=== PATIENT | female | born 1960 | race Caucasian/White ===

== ENCOUNTER 2020-09-02 12:44 | Outpatient (CLI) | payer SELFPAY ==
--- NOTE | 2020-09-02 | CT_ITS ---
WS: [id number] CT LUMBAR SPINE, noncontrast. HISTORY: Back pain. TECHNIQUE: Contiguous 2.5 mm axial imaging are performed. Sagittal and coronal reformats are submitte d and reviewed. All CT scans at [facility] use at least one of these dose optimization te chniques: automated exposure control; mA and/or kV adjustment per patient size (includes targeted exa ms where dose is matched to clinical indication); or iterative reconstruction. IV contrast: None DLP: 1970.98 mGycm COMPARISON: 02/21/2016 Status post artificial disc replacement at L4-5 is similar to the prior examination. Mild increase in the lumbar lordosis in the lower lumbar region. Vertebral bodies are normal height. L1-2: Normal. L2-3: Normal. L3-4: Minimal osteophytic ridging and annular bulging. No stenosis. L4-5: Artifact from the disc replacement. Portion of the thecal sac is obscured by artifact. No inter jose roberto change. L5-S1: Minimal annular disc bulging. No stenosis. Minimal atherosclerosis of aorta. Mild diffuse fecal retention and constipation. CT/CT lumbar spine wo con* [id number] IMPRESSION: 1. Status post artificial replacement of the L4-5 disc. 2. No significant stenosis. Similar changes as compared to 02/21/2016.
--- NOTE | 2020-09-02 | XR_ITS ---
WS: [id number] THORACIC SPINE TECHNIQUE: AP and lateral views are performed. HISTORY: Dorsalgia COMPARISON: None available. Normal thoracic alignment. Very minimal disc space narrowing and small hypertrophic endplate osteophy suzie at all levels. Pedicles and interpedicular distances are normal. XR/XR thoracic spine 2V [id number] IMPRESSION: Mild thoracic spondylosis.
== END 2020-09-02 12:45 | disposition home or self-care (01) ==
LOC: RADWPI 12:57
PROVIDERS: PCP Family Medicine; Visit Provider Family Medicine
DX: M54.5 Low back pain (principal); M47.814 Spondylosis without myelopathy or radiculopathy, thoracic region
CPT/HCPCS: 72070; 72131

== ENCOUNTER 2020-12-15 14:36 | Outpatient (CLI) | payer MEDICARE, SELFPAY ==
--- NOTE | 2020-12-15 14:46 | MM_ITS ---
WS: [id number] BILATERAL SCREENING DIGITAL MAMMOGRAM WITH CAD HISTORY: SCREENING COMPARISON: 10/23/2017 Bilateral CC and MLO views submitted. Computer aided detection analyzed. Breast composition: The breasts are heterogeneously dense, which may obscure small masses. No suspici ous masses, microcalcifications or architectural distortion. Benign calcification 9:00 RIGHT breast. MM/[place] [id number] IMPRESSION: BI-RADS: 2-Benign FOLLOW UP: 1 Year Follow-up
== END 2020-12-15 14:37 | disposition home or self-care (01) ==
LOC: RADSHAW 14:45
PROVIDERS: PCP Family Medicine; Visit Provider Family Medicine
DX: Z12.31 Encounter for screening mammogram for malignant neoplasm of breast (principal)
CPT/HCPCS: 77067

== ENCOUNTER → 2021-04-06 10:59 | Outpatient (BNVA) | payer MEDICARE, SELFPAY | PROVIDERS: PCP Family Medicine; Visit Provider Surgery | DX: Z01.812 Encounter for preprocedural laboratory examination (principal); Z20.822 Contact with and (suspected) exposure to COVID-19 | CPT/HCPCS: 87635 ==

== ENCOUNTER 2021-04-12 08:36 | Day surgery (SDC) | payer MEDICARE, SELFPAY ==
[2021-04-05 15:47] VITALS: BMI 24.1
--- NOTE | 2021-04-12 08:53 | ANES.PREANE2 ---
Pre-Anesthetic Assessment Pre-Anesthetic Assessment: Height/Weight: Height 1.65 m Weight 65.771 kg Preop Diagnosis: Screening Proposed Procedure: Operation Date: 04/12/21 10:00 Proposed Procedures p Colonoscopy 15842 z12.11(Not Applicable) - Cal Chamberlain MD Familial anesthetic complications: None Was Beta Rajiv taken within 24 hours: N/A Was Clonidine taken within 24 hours: N/A Last intake: > 8hrs Social: Social History: No alcohol and No tobacco Comment: Vapes Exam: Pre-Anes Outpt Exam: alert, oriented x 3, clear to auscultation bilaterally and regular rate & rhythm Airway: MP: 2 Dentition: Partials Metabolic: Metabolic: Hyperlipidemia Musc/skel: Musc/skel: Lower Back Pain Neuropsych: Comments: propanolol for migraines Anesthetic Plan: ASA status: 2 Anesthesia: MAC Risk of > 500 ml blood loss (7ml/kg in children): No Data Anesthesia Cardiac Studies: No Data to Display
[2021-04-12 09:16] VITALS: BP 159/93; PULSE 62; RESP 18; TEMP 35.9; O2SAT 96
[2021-04-12] MEDS: sodium chloride 0.9% 1,000 ML 30 ML IV (09:23)
--- NOTE | 2021-04-12 09:41 | W.PM.OPSFHP ---
Same Day Surgery H&P Indication for Procedure/HPI DATE OF PROCEDURE: April 12, 2021 CHIEF COMPLAINT/INDICATIONFOR SURGICAL PROCEDURE: Screening colonoscopy PREOP DIAGNOSIS: Screening colonoscopy PLANNED PROCEDRUE: Operation Date: 04/12/21 10:00 Proposed Procedures p Colonoscopy 89604 z12.11(Not Applicable) - Cal Chamberlain MD This is a pleasant 60 years old female patient referred to my practice for screening colonoscopy. She denies history of bleeding per rectum. Or history of colon cancer. ROS All systems have been reviewed negative except as per the above or per problem list Medications/Allergies* Home Medications Medication Instructions Recorded Confirmed Type acetaminophen-codeine 600 tab PO BID 04/05/21 04/12/21 History carisoprodol 350 mg PO TID 04/05/21 04/12/21 History estradiol 0.5 mg PO DAILY 04/05/21 04/12/21 History gabapentin 600 mg PO TID 04/05/21 04/12/21 History morphine 15 mg PO TID 04/05/21 04/12/21 History propranolol 120 mg PO DAILY 04/05/21 04/12/21 History rosuvastatin 5 mg PO DAILY 04/05/21 04/12/21 History sennosides-docusate sodium [Colace 2 tab-cap PO TID 04/12/21 04/12/21 History 2-In-1] Allergies/Adverse Reactions Allergy/AdvReac Type Severity Reaction Status Date / Time Iodinated Contrast Media Allergy Unknown Verified 04/12/21 10:23 meperidine [From Demerol] Allergy Unknown Verified 04/12/21 10:23 Current Medications: Generic Name Dose Route Start Last Admin Trade Name Freq PRN Reason Stop Dose Admin Sodium Chloride 1,000 mls @ 30 mls/hr 04/12/21 09:00 04/12/21 09:23 Sodium Chloride 0.9% IV 04/13/21 08:59 30 mls/hr .Q24H IVONE Administration Pertinent Exam Findings alert, oriented x 3, clear to auscultation bilaterally, regular rate & rhythm and procedure specific exam findings (Abdominal examination nontender nondistended soft, midline scar) Recommendations Surgery/Procedure today (Colonoscopy with possible biopsy) Other Plans: Plan of care; After thorough history and physical examination and reviewing the chart, plan to perform screening colonoscopy. I discussed with the patient in details the risks,benefits,alternatives and indications.The risk of aspiration, bleeding, soft tissue injury, perforation of the colon and other potential concomitant complications were explained to the patient in details,also the potential need for Laproscoy/Laparotomy to repair any related complications including but not limited to colectomy and or Closotomy.The patient understood this well and did agree to proceed. Rationale was carefully and clearly discussed with the patient.Appropriate informed consent have been reviewed and signed All questions have been answered and all concerns have been addressed to patient's satisfaction. Verbal and written Instructions were given to the patient for colonoscopy prep Coding Level of Care Code [employer] for [employer]
[2021-04-12 10:43] VITALS: BP 131/91; PULSE 62; RESP 16; TEMP 36.1; O2SAT 93
[2021-04-12 10:54] VITALS: BP 133/75; PULSE 57; RESP 16; O2SAT 100
--- NOTE | 2021-04-12 13:57 | ANE.PACU2 ---
Inpatient post-anesthesia follow up: Airway intact: Yes Vital signs: Temperature 97.0 F Pulse Rate 57 Respiratory Rate 16 Blood Pressure 133/75 Pulse Oximetry 100 Oxygen Delivery Me thod Room Air Oxygen Flow Rate Fraction of Inspir ed Oxygen Hydration adequate: Yes Nausea and vomiting: No Pain level: 1 Mental status: Baseline
== END 2021-04-12 11:12 | disposition home or self-care (01) ==
PROVIDERS: PCP Family Medicine; Visit Provider Surgery
PROC: 0DJD8ZZ Inspection of Lower Intestinal Tract, Via Natural or Artificial Opening Endoscopic (ICD-10-PCS; CPT 45378; principal; 2021-04-12 10:00)
DX: Z12.11 Encounter for screening for malignant neoplasm of colon (principal); K63.89 Other specified diseases of intestine; E78.5 Hyperlipidemia, unspecified
CPT/HCPCS: 45378; 96360; 96361; J2704; J7030

== ENCOUNTER 2022-04-16 12:13 | Outpatient (CLI) | payer MEDICARE, SELFPAY ==
--- NOTE | 2022-04-16 12:21 | MM_ITS ---
WS: [id number] SCREENING DIGITAL BREAST TOMOSYNTHESIS MAMMOGRAM WITH CAD HISTORY: Screening exam COMPARISON: 12/15/2020 Bilateral CC and MLO with tomosynthesis and synthetic mammography submitted. Computer aided detection analyzed. Breast composition: The breasts are heterogeneously dense, which may obscure small masses. Seen only on the LEFT MLO projection is an area of distortion in the central breast. No corresponding abnormali ty noted on the CC projection. The RIGHT breast is negative for distortion or suspicious calcificatio n. MM/[place] [id number] IMPRESSION: BI-RADS: 0-Incomplete: Need additional imaging evaluation FOLLOW UP: Need Additional Imaging LEFT breast: Spot compression views (MLO). True ML. Ultrasound to follow if abn ormality persists.
== END 2022-04-16 12:14 | disposition home or self-care (01) ==
PROVIDERS: PCP Family Medicine; Visit Provider Family Medicine
DX: Z12.31 Encounter for screening mammogram for malignant neoplasm of breast (principal)
CPT/HCPCS: 77063; 77067

== ENCOUNTER 2022-05-15 14:00 | Outpatient (CLI) | payer MEDICARE, SELFPAY ==
--- NOTE | 2022-05-15 14:06 | MM_ITS ---
WS: [id number] ADDITIONAL VIEWS LEFT MAMMOGRAM WITH DIGITAL BREAST TOMOSYNTHESIS. HISTORY: ABNORMAL MAMMOGRAM COMPARISON: 04/16/2022 on 12/15/2020 Spot compression views LEFT breast in MLO projection and true ML submitted with digital breast tomosy prosper and EVA. The asymmetry and distortion described on the prior screening mammogram is no longer present. This wa s most likely superimposed fibroglandular tissue and poor compression. MM/MM tomosynthesis diag [id number] IMPRESSION: BI-RADS: 2-Benign FOLLOW UP: 1 Year Follow-up
== END 2022-05-15 14:01 | disposition home or self-care (01) ==
LOC: RAD 14:00
PROVIDERS: PCP Family Medicine; Visit Provider Family Medicine
DX: R92.8 Other abnormal and inconclusive findings on diagnostic imaging of breast (principal)
CPT/HCPCS: 77061

== ENCOUNTER 2023-06-28 10:42 | Outpatient (CLI) | payer MEDICARE, SELFPAY ==
--- NOTE | 2023-06-28 10:55 | XRR_ITS ---
PROCEDURE INFORMATION: Exam: XR Left Ankle Exam date and time: 06/28/2023 10:58 AM Age: 62 years old Clinical indication: Pain; Ankle; Left; Additional info: Pain in left foot/ankle TECHNIQUE: Imaging protocol: Radiologic exam of the left ankle. Views: 3 or more views. COMPARISON: CR (LOW EXM, ) 06/28/2023 10:58 AM FINDINGS: Bones/joints: Minimal irregularity at the tip of the lateral malleolus could represent old trauma. There is no soft tissue swelling. This does not represent an acute injury. No acute osseous or joint abnormality. Soft tissues: Normal. XR/XR ankle LT min 3V* [id number] IMPRESSION: No acute traumatic injury.
--- NOTE | 2023-06-28 10:56 | XRR_ITS ---
PROCEDURE INFORMATION: Exam: XR Left Toe(s) Exam date and time: 06/28/2023 10:58 AM Age: 62 years old Clinical indication: Pain; Toes; Left; Patient HX: 1st toe; Additional info: Pain to left foot/ankle TECHNIQUE: Imaging protocol: Radiologic exam of the left toes. Views: Minimum 2 views. COMPARISON: CR (LOW EXM, ) 06/28/2023 10:58 AM FINDINGS: Bones/joints: Normal. Soft tissues: Small irregularity at the medial base of the 1st proximal phalanx without significant soft tissue swelling, this may represent old trauma, probably not a new injury. XR/XR toe LT min 2V [id number] IMPRESSION: Possible old trauma to the 1st proximal phalanx.
== END 2023-06-28 10:43 | disposition home or self-care (01) ==
PROVIDERS: PCP Family Medicine; Visit Provider Family Medicine
DX: M25.572 Pain in left ankle and joints of left foot (principal); M79.675 Pain in left toe(s)
CPT/HCPCS: 73610; 73660

== ENCOUNTER → 2023-07-12 10:45 | Outpatient (BNVA) | payer MEDICARE, SELFPAY | PROVIDERS: PCP Family Medicine; Visit Provider Podiatrist Foot & Ankle Surgery | DX: M79.672 Pain in left foot (principal); M25.572 Pain in left ankle and joints of left foot; S93.402A Sprain of unspecified ligament of left ankle, initial encounter; X50.9XXA Other and unspecified overexertion or strenuous movements or postures, initial encounter | CPT/HCPCS: 73610; 73630; 99203 ==

== ENCOUNTER 2023-08-22 06:00 | Outpatient (RCR) | payer MEDICARE, SELFPAY | END 2023-09-04 23:59 | disposition home or self-care (01) | LOC: TPT 06:00 | PROVIDERS: Visit Provider Podiatrist Foot & Ankle Surgery | DX: S93.402D Sprain of unspecified ligament of left ankle, subsequent encounter (principal); R53.1 Weakness; X58.XXXD Exposure to other specified factors, subsequent encounter | CPT/HCPCS: 97110; 97140; 97162 ==

== ENCOUNTER 2023-09-05 06:00 | Outpatient (RCR) | payer MEDICARE, SELFPAY | END 2023-10-03 23:59 | disposition home or self-care (01) | LOC: TPT 06:00 | PROVIDERS: Visit Provider Podiatrist Foot & Ankle Surgery | DX: S93.402D Sprain of unspecified ligament of left ankle, subsequent encounter (principal); R53.1 Weakness; X58.XXXD Exposure to other specified factors, subsequent encounter | CPT/HCPCS: 97110; 97140 ==

== ENCOUNTER → 2023-10-03 10:45 | Outpatient (BNVA) | payer MEDICARE, SELFPAY | PROVIDERS: Visit Provider Podiatrist Foot & Ankle Surgery | DX: S93.402A Sprain of unspecified ligament of left ankle, initial encounter; M25.572 Pain in left ankle and joints of left foot; X58.XXXA Exposure to other specified factors, initial encounter | CPT/HCPCS: 99213 ==

== ENCOUNTER 2024-09-08 12:42 | Outpatient (CLI) | payer MEDICARE, SELFPAY ==
--- NOTE | 2024-09-08 12:40 | MM_ITS ---
WS: [id number] BILATERAL 3D TOMOSYNTHESIS DIGITAL SCREENING MAMMOGRAM WITH CAD CLINICAL INFORMATION: SCREENING HISTORY: Screening mammogram. No current complaints. COMPARISON: 2021 TECHNIQUE: Bilateral CC and MLO. FINDINGS: The breast are composed of extremely dense tissue, which can limit the detection of small underlying mass lesions. No suspicious focal mass, asymmetry, calcifications, or architectural distortion. No evidence of malignancy. Stable clustered calcifications inner LEFT breast MM/MM scr BI tomosynthesis [id number] IMPRESSION: DENSITY: The breasts are extremely dense, which lowers the sensitivity of mammo graphy. BI-RADS: 2 - Benign FOLLOW UP: 1 Year Follow-up Recommend return to annual screening mammography.
== END 2024-09-08 12:43 | disposition home or self-care (01) ==
PROVIDERS: PCP Family Medicine; Visit Provider Family Medicine
DX: Z12.31 Encounter for screening mammogram for malignant neoplasm of breast (principal); R92.343 Mammographic extreme density, bilateral breasts; R92.1 Mammographic calcification found on diagnostic imaging of breast
CPT/HCPCS: 77063; 77067

== ENCOUNTER 2025-06-25 11:39 | Outpatient (CLI) | payer MEDICARE, SELFPAY ==
--- NOTE | 2025-06-25 11:45 | MR_ITS ---
WS: [id number] MRI LEFT ANKLE WITHOUT CONTRAST. COMPARISON: LEFT foot radiographs 07/12/2023 Multiplanar, multisequence imaging is performed without contrast. No marrow edema or acute fracture. Normal alignment at the ankle joint. No osteochondral lesions along the talar dome. Distal Achilles tendon is normal. Plantar fascia is normal. Normal interosseous membrane. No fluid in the peroneal tendon sheath. Peroneal brevis tendon is slightly C- shaped at the level of the lateral malleolus. There is partial encasement of the peroneal longus by the brevis. This is likely a chronic tear of the peroneal brevis tendon at the level of the lateral malleolus. The distal peroneal brevis tendon is intact although there is mild atrophy. Posterior tibialis tendon, flexor hallucis longus and flexor digitorum longus tendons are normal. Anterior tibialis tendon is normal. Anterior inferior and posterior inferior tibiofibular ligaments are intact. ATFL is of intermediate signal but no tear. Posterior talofibular ligament is normal. Normal striations of the deltoid ligament. Spring ligament is intact. Calcaneofibular ligament is intact. MR/MR ankle LT wo con* [id number] IMPRESSION: 1. No acute marrow edema or fracture. 2. No fluid in the peroneal tendon sheath. There is a mild C-shaped appearance of the peroneal brevis at the level of the lateral malleolus. Suspect there is a remote, chronic tear with healing of the peroneal brevis. There is no retrac tion of the tendon and this is not acute. 3. Intermediate signal in the ATFL but no tear. Changes are probably related t o a remote injury with healing. 4. No joint effusion.
== END 2025-06-25 11:40 | disposition home or self-care (01) ==
LOC: RAD 11:43
PROVIDERS: PCP Family Medicine; Visit Provider Family Medicine
DX: M25.572 Pain in left ankle and joints of left foot (principal); M21.6X2 Other acquired deformities of left foot; S93.402A Sprain of unspecified ligament of left ankle, initial encounter; X58.XXXA Exposure to other specified factors, initial encounter
CPT/HCPCS: 73721